=== PATIENT | female | born 1945 | race Caucasian/White ===

== ENCOUNTER 2016-09-13 08:37 | Emergency (ER) | payer MEDICARE ==
--- NOTE | 2016-09-13 08:39 | UC ---
Eye Complaint HPI - HPI Summary HPI Summary: 71 year old female presents with complains bilateral mucopurulent eye discharge/ redness. - History of Current Complaint Stated Complaint: BILATERAL EYE COMPLAINT Time Seen by Provider: 09/13/16 08:38 - Allergies/Home Medications Allergies/Adverse Reactions: Allergies Allergy/AdvReac Type Severity Reaction Status Date / Time Sulfamethoxazole Allergy Intermediate GI/nausea Verified 07/15/16 14:00 w/Trimethoprim [From Bactrim] Nabumetone [From Relafen] AdvReac Intermediate GI Verified 07/15/16 14:00 Amoxicillin AdvReac GI Upset Verified 09/13/16 08:46 PMH/Surg Hx/FS Hx/Imm Hx Previously Healthy: Yes - Surgical History Surgical History: Yes Surgery Procedure, Year, and Place: tonsillectomy. partial hysterectomy. tubal ligation. upper right arm surgery age 14 yo. bilat eye surgery/cataract - Family History Known Family History: Positive: Hypertension, Respiratory Disease - Social History Alcohol Use: Daily Alcohol Amount: 1 mixed drink a day Substance Use Type: None Smoking Status (MU): Former Smoker Type: Cigarettes When Did the Patient Quit Smoking/Using Tobacco: 1989 Review of Systems Constitutional: Negative Skin: Negative Eyes: Drainage, Eye Redness ENT: Negative Respiratory: Negative Cardiovascular: Negative Gastrointestinal: Negative Genitourinary: Negative Motor: Negative Neurovascular: Negative Musculoskeletal: Negative Neurological: Negative Psychological: Negative All Other Systems Reviewed And Are Negative: Yes Physical Exam Triage Information Reviewed: Yes Eyes: Positive: Conjunctiva Inflamed, Discharge ENT Exam: Normal Dental Exam: Normal Neck exam: Normal Neck: Positive: 1 Respiratory Exam: Normal Cardiovascular Exam: Normal Abdominal Exam: Normal Musculoskeletal Exam: Normal Neurological Exam: Normal Psychological Exam: Normal Skin Exam: Normal Eye Complaint Course/Dx - Differential Dx/Diagnosis Differential Diagnosis/HQI/PQRI: Conjunctivitis Provider Diagnoses: conjunctivitis Discharge - Discharge Plan Condition: Stable Disposition: HOME Prescriptions: Naphazoline W/ Pheniramine [Opcon-A] 1 sagar OP TID PRN #1 sagar PRN Reason: Itching Tobramycin-Dexamethasone [Tobradex] 1 artur OP Q6H #1 bottle Patient Education Materials: Conjunctivitis (ED) Referrals: Gretchen Flores MD [Primary Care Provider] - Steffen DYE,Elza Mckeon [Medical Doctor] -
[2016-09-13 08:57] VITALS: BP 107/55
== END 2016-09-13 09:00 | disposition home or self-care (01) ==
LOC: UCCORT 08:37
DX: H10.33 Unspecified acute conjunctivitis, bilateral (principal); Z98.42 Cataract extraction status, left eye; Z98.41 Cataract extraction status, right eye; Z90.711 Acquired absence of uterus with remaining cervical stump; Z88.1 Allergy status to other antibiotic agents; Z88.2 Allergy status to sulfonamides; Z87.891 Personal history of nicotine dependence
CPT/HCPCS: 99212; G0463

== ENCOUNTER 2017-01-07 07:10 | Emergency (ER) | payer MEDICARE ==
[2017-01-07] MEDS ORDERED: predniSONE TAB* 20 MG PO ONE (07:36)
[2017-01-07] MEDS ORDERED: Albuterol/Ipratropium NEB.SOL* Albuterol 2.5 MG/Ipratropium 0.5 MG 3 ML INH ONE (07:36)
--- NOTE | 2017-01-07 07:47 | ED ---
HPI Cardiac - HPI Summary HPI Summary: 71 yr old female with the complaint of runny nose, coughing. Onset of symptoms was 3-4 weeks ago after returning from vacation in [facility]. She has been having increased coughing, sob, and feeling just tired over the past week. She denies fever. She does have a history of smoking, but quit many years ago. She has not had fever. Her cough is tight and spastic in quality. Severity is moderate. She states her chest is tight with the coughing episodes. Her has had recent pneumonia in the past few weeks. She has felt this way in the past with COPD exacerbation. - History of Current Complaint Stated Complaint: CONGESTION,HOT/COLD FLASHES Time Seen by Provider: 01/07/17 07:28 - Allergy/Home Medications Allergies/Adverse Reactions: Allergies Allergy/AdvReac Type Severity Reaction Status Date / Time Sulfamethoxazole Allergy Intermediate GI/nausea Verified 01/07/17 07:39 w/Trimethoprim [From Bactrim] Nabumetone [From Relafen] AdvReac Intermediate GI Verified 01/07/17 07:39 Amoxicillin AdvReac GI Upset Verified 01/07/17 07:39 PMH/Surg Hx/FS Hx/Imm Hx Respiratory History: Reports: Hx Chronic Obstructive Pulmonary Disease (COPD) Neurological History: Reports: Other Neuro Impairments/Disorders - PT DOESNT KNOW THE NAME OF THE CONDITION - Surgical History Surgery Procedure, Year, and Place: tonsillectomy. partial hysterectomy. tubal ligation. upper right arm surgery age 14 yo. bilat eye surgery/cataract - Family History Known Family History: Positive: Hypertension, Respiratory Disease - Social History Alcohol Use: Daily Alcohol Amount: 1 mixed drink a day Substance Use Type: Reports: None Smoking Status (MU): Former Smoker Type: Cigarettes Review of Systems Positive: Fatigue Negative: Chest Pain Positive: Shortness Of Breath, Cough Negative: Edema Skin: Negative All Other Systems Reviewed And Are Negative: Yes Physical Exam Triage Information Reviewed: Yes Vital Signs Reviewed: Yes Appearance: Positive: Well-Appearing, No Pain Distress Skin: Positive: Warm, Skin Color Reflects Adequate Perfusion Head/Face: Positive: Normal Head/Face Inspection Eyes: Positive: EOMI ENT: Positive: Normal ENT inspection, Pharynx normal, TMs normal - she has hearing aids removed and TMs easily seen and WNL. Neck: Positive: Nontender Respiratory/Lung Sounds: Positive: Decreased Breath Sounds - bilateral, Wheezes - faint wheeze in bilateral pfeiffer.. Negative: Stridor Cardiovascular: Positive: RRR. Negative: Murmur Abdomen Description: Positive: Nontender Musculoskeletal: Positive: Strength/ROM Intact. Negative: Edema Left, Edema Right Neurological: Positive: Sensory/Motor Intact, Alert, Oriented to Person Place, Time, CN Intact II-III Psychiatric: Positive: Normal - Gee Coma Scale Best Eye Response: 4 - Spontaneous Best Motor Response: 6 - Obeys Commands Best Verbal Response: 5 - Oriented Diagnostics - Laboratory Lab Statement: Any lab studies that have been ordered have been reviewed, and results considered in the medical decision making process. - Radiology chest xray Xray Interpretation: Positive (See Comments) - COPD Radiology Interpretation Completed By: Radiologist Re-Evaluation - Re-Evaluation First Eval Re-Evaluation Time: 08:49 Change: Improved Comment: Better air movement and appears more comfortable. Disposition - Course Course Of Treatment: 71 yr old with spastic coughing and SOB. COPD finding on chest xray. Rsx with MDI and prednisone, zithromax. - Diagnoses Provider Diagnoses: COPD exacerbation Discharge - Discharge Plan Condition: Good Disposition: HOME Prescriptions: Albuterol HFA INHALER* [Ventolin HFA Inhaler*] 1 - 2 puff INH Q4H PRN #1 mdi PRN Reason: Cough Azithromycin TAB* [Zithromax TAB (Z-JOANN) 250 mg #6 tabs] 2 tab PO .TODAY, THEN 1 DAILY #1 joann predniSONE TAB* [Deltasone TAB*] 40 mg PO DAILY #8 tab Patient Education Materials: COPD (Chronic Obstructive Pulmonary Disease) (ED) Referrals: Gretchen Flores MD [Primary Care Provider] - 3 Days
[2017-01-07] MEDS ORDERED: predniSONE TAB* 10 MG PO ONE (07:55)
--- NOTE | 2017-01-07 08:19 | RAD ---
INDICATION: Cough. COMPARISON: Comparison is made with a prior chest x-ray study from November 26, 2013. TECHNIQUE: Dual-energy PA and lateral views of the chest were obtained. FINDINGS: The heart is within normal limits in size. There is a retrocardiac density most consistent with a small hiatal hernia. There is increased density present at the left lung base located anteriorly which is unchanged from the prior exam likely representing a prominent pericardial fat pad. The lungs are hyperinflated otherwise clear. No pleural effusion is seen. IMPRESSION: FINDINGS CONSISTENT WITH COPD, NO EVIDENCE FOR ACUTE FINDING.
== END 2017-01-07 09:09 | disposition home or self-care (01) ==
LOC: UCCORT 07:10
DX: J44.1 Chronic obstructive pulmonary disease with (acute) exacerbation (principal); Z88.1 Allergy status to other antibiotic agents; Z88.2 Allergy status to sulfonamides; Z87.891 Personal history of nicotine dependence
CPT/HCPCS: 71020; 99213; A9270-GY; G0463; J7512

== ENCOUNTER 2018-05-25 09:39 | Emergency (ER) | payer MEDICARE ==
[2018-05-25 10:54] VITALS: BP 114/53
[2018-05-25] MEDS ORDERED: predniSONE TAB* 20 MG PO ONE (11:45)
[2018-05-25] MEDS ORDERED: Erythromycin OPTH OINT* APPLIC OINT LEFT EYE ONE (11:45)
--- NOTE | 2018-05-25 11:52 | UC ---
Eye Complaint HPI - HPI Summary HPI Summary: 73 yo female with wheezing x 1 day no cp or fever used neb also left lower lid pain and eye redness x 1 day states she has taken keflex in the past - History of Current Complaint Chief Complaint: UCRespiratory Stated Complaint: SINUS/LEFT EYE COMPLAINT,WHEEZING Time Seen by Provider: 05/25/18 11:36 Hx Obtained From: Patient Onset/Duration: Gradual Onset, Lasting Hours Timing: Constant Severity Initially: Mild Severity Currently: Moderate Pain Intensity: 0 Pain Scale Used: 0-10 Numeric Location of Injury: Eye Lid (lower) Character: Dull Aggravating Factor(s): Nothing Alleviating Factor(s): Nothing Associated Signs And Symptoms: Negative: Drainage (Clear), Drainage (Purulent) - Allergies/Home Medications Allergies/Adverse Reactions: Allergies Allergy/AdvReac Type Severity Reaction Status Date / Time amoxicillin Allergy GI Upset Verified 05/25/18 10:44 nabumetone [From Relafen] Allergy GI Upset Verified 05/25/18 10:44 sulfamethoxazole Allergy GI Upset Verified 05/25/18 10:44 [From Bactrim] trimethoprim [From Bactrim] Allergy GI Upset Verified 05/25/18 10:44 Home Medications: Home Medications Albuterol HFA INHALER* [Ventolin HFA Inhaler*] 1 puff Q4HR PRN 05/25/18 [ History Confirmed 05/25/18] Apo-Domperidone 1 tab TID 05/25/18 [History Confirmed 05/25/18] Aspirin EC TAB* [Ecotrin EC Low Dose 81 MG*] 81 mg PO DAILY 05/25/18 [History Confirmed 05/25/18] Atorvastatin* [Lipitor 10 MG*] 10 mg DAILY 05/25/18 [History Confirmed 05/25/18] Baclofen TAB* [Lioresal TAB*] 10 mg PO TID PRN 05/25/18 [History Confirmed 05/25] Fluticasone NASAL SPRAY 50MCG* [Flonase NASAL SPRAY 50MCG*] 1 spray BID [History Confirmed 05/25/18] Fluticasone-Salmeterol 100-50* [Advair Diskus 100-50*] 1 puff BID 05/25/18 [ History Confirmed 05/25/18] Omeprazole 20 mg PO BID 05/25/18 [History Confirmed 05/25/18] Umeclidinium Surrency [Incruse Ellipta] 1 puff DAILY 05/25/18 [History Confirmed 05/25/18] PMH/Surg Hx/FS Hx/Imm Hx Previously Healthy: Yes Cardiovascular History: Hypertension Respiratory History: Asthma, Bronchitis, Pneumonia - Surgical History Surgical History: Yes Surgery Procedure, Year, and Place: tonsillectomy. partial hysterectomy. tubal ligation. upper right arm surgery age 14 yo. bilat eye surgery/cataract - Family History Known Family History: Positive: Hypertension, Respiratory Disease - Social History Alcohol Use: Daily Alcohol Amount: 1 mixed drink a day Substance Use Type: None Smoking Status (MU): Former Smoker Type: Cigarettes When Did the Patient Quit Smoking/Using Tobacco: JAN 24, 1990 Review of Systems All Other Systems Reviewed And Are Negative: Yes Constitutional: Positive: Negative Skin: Positive: Negative Eyes: Positive: Eye Redness - L ENT: Positive: Negative Respiratory: Positive: Cough, Other - wheezing Cardiovascular: Positive: Negative Gastrointestinal: Positive: Negative Genitourinary: Positive: Negative Motor: Positive: Negative Neurovascular: Positive: Negative Musculoskeletal: Positive: Negative Neurological: Positive: Negative Psychological: Positive: Negative Physical Exam Triage Information Reviewed: Yes Appearance: Well-Appearing, No Pain Distress, Well-Nourished Vital Signs: Initial Vital Signs Temp 97.4 F 05/25/18 10:50 Pulse 85 05/25/18 10:50 Resp 16 05/25/18 10:50 BP 114/53 05/25/18 10:50 Pulse Ox 98 05/25/18 10:50 Vital Signs Reviewed: Yes Eyes: Positive: Conjunctiva Inflamed - L, Other: - chalazion left lower lid ENT: Positive: Hearing grossly normal. Negative: Nasal congestion, Nasal drainage, Tonsillar swelling, Tonsillar exudate, Trismus, Muffled voice, Sinus tenderness, Uvula midline Neck: Positive: Supple, Nontender, No Lymphadenopathy Respiratory: Positive: Normal breath sounds, No respiratory distress, No accessory muscle use, Wheezing - with forced expiration Cardiovascular: Positive: RRR, No Murmur Musculoskeletal: Positive: ROM Intact, No Edema Neurological: Positive: Alert Psychological Exam: Normal Skin Exam: Normal Eye Complaint Course/Dx - Differential Dx/Diagnosis Provider Diagnosis: Chalazion of left lower eyelid, Bronchospasm with bronchitis, acute Discharge - Sign-Out/Discharge Documenting (check all that apply): Patient Departure All imaging exams completed and their final reports reviewed: No Studies - Discharge Plan Condition: Stable Disposition: HOME Prescriptions: Cephalexin CAP* [Keflex CAP*] 500 mg PO TID #15 cap predniSONE [Prednisone 5 MG TAB] 10 - 40 mg PO DAILY #32 tablet Patient Education Materials: Chalazion (ED), Bronchospasm (ED) Referrals: Gretchen Flores MD [Primary Care Provider] - 4 Days (if breathing not better) Elba Perkins MD [Medical Doctor] - As Soon As Possible - Billing Disposition and Condition Condition: STABLE Disposition: Home
== END 2018-05-25 12:04 | disposition home or self-care (01) ==
LOC: UCCORT 09:39
DX: J20.9 Acute bronchitis, unspecified (principal); H00.15 Chalazion left lower eyelid; I10 Essential (primary) hypertension; J45.909 Unspecified asthma, uncomplicated; Z88.0 Allergy status to penicillin; Z88.2 Allergy status to sulfonamides; Z88.8 Allergy status to other drugs, medicaments and biological substances; Z87.891 Personal history of nicotine dependence
CPT/HCPCS: 99213; A9270-GY; G0463; J7512

== ENCOUNTER 2020-04-21 11:30 | Observation (INO) ==
[~2020-04-21 11:30] MED LIST: Buffered Lidocaine 1% SYRIN 1 ml INTRADERM ONE; DiMENhydriNATE IV 50 mg/ml 1 ml VIAL IV PUSH PRN; Lactated Ringers 1000 ml BAG 1,000 ML IV SCH; Naloxone 0.4 mg VIAL 0.4 mg/ml 1 ml VIAL IV PRN; Ondansetron 4 mg VIAL 2 MG/ML 2 ml VIAL IV PRN; fentaNYL 100 mcg/2 ml 50 MCG/ML VIAL IV PRN; oxyCODONE/Acetamin 5/325 mg TAB PO PRN
[2020-04-21] MEDS ORDERED: Propofol 10 MG/ML 20 ML BTL ONE (12:57)
[2020-04-21] MEDS ORDERED: Glycopyrrolate IV 0.2 MG/ML 1 ML VIAL ONE (12:57)
[2020-04-21] MEDS ORDERED: Lidocaine 2% PF 5 ML VIAL ONE (12:58)
[2020-04-21] MEDS ORDERED: Ondansetron 4 mg VIAL 2 MG/ML 2 ml VIAL ONE (13:44)
[2020-04-21] MEDS ORDERED: ceFAZolin 2 GM PREMIX 2 GM/50 ML BAG ONE (14:21)
[2020-04-21] MEDS ORDERED: ROPIVACAINE 5 MG/ML 30 ML BTL (0.5%) ONE (14:45)
[2020-04-21] MEDS ORDERED: Midazolam 5 mg/5 ml VIAL 1 mg/ml 5 ml VIAL (5 mg) ONE (14:51)
[2020-04-21] MEDS ORDERED: Dexamethasone IV 4 MG/ML VIAL 1 ml VIAL ONE (14:51)
[2020-04-21] MEDS ORDERED: fentaNYL 100 mcg/2 ml 50 MCG/ML VIAL ONE (16:01)
[2020-04-21] MEDS ORDERED: Midazolam 2 mg/2 ml VIAL 1 mg/ml 2 ml VIAL (2 mg) ONE (16:45)
[2020-04-21] MEDS ORDERED: Dexmedetomidine 200 mcg/2 ml 2 ml VIAL (200 mcg) ONE (16:54)
[2020-04-21] MEDS ORDERED: Ropivacaine 5 MG/ML 20 ML VIAL 0.5% (100 MG) ONE (16:58)
[2020-04-21] MEDS ORDERED: Morphine 2 MG/ML SYRINGE IV PRN (18:49)
[2020-04-21] MEDS ORDERED: Ondansetron 4 mg VIAL 2 MG/ML 2 ml VIAL IV PRN (18:49)
[2020-04-21] MEDS ORDERED: diPHENhydraMINE IV 50 MG/ML 1 ml VIAL (BENADRYL) IV PRN (18:49)
[2020-04-21] MEDS ORDERED: Magnesium Hydroxide LIQ 30 ML UDC PO PRN (18:49)
[2020-04-21] MEDS ORDERED: Ondansetron ODT 4 mg TAB 4 MG TAB PO PRN (18:49)
[2020-04-21] MEDS ORDERED: Lactulose 30 ml UDC PO PRN (18:49)
[2020-04-21] MEDS ORDERED: diPHENhydraMINE 25 mg TAB PO PRN (18:49)
[2020-04-21] MEDS ORDERED: Albuterol 2.5mg/3 ml (0.083%) NEB.SOLN INH PRN (19:01)
[2020-04-21] MEDS ORDERED: oxyCODONE/Acetamin 5/325 mg TAB ONE (19:08)
[2020-04-21] MEDS ORDERED: Albuterol HFA INHALER 8 gm MDI INH PRN (20:20)
[2020-04-21] MEDS: Lactated Ringers 1000 ml BAG 1,000 ML IV SCH (20:55)
[2020-04-21] MEDS: Magnesium Hydroxide LIQ 30 ML UDC PO SCH (21:05)
[2020-04-21] MEDS: Fluticasone NASAL SPRAY 50MCG 16 gm SPRAY BTL INTRANASAL SCH (21:11)
[2020-04-21] MEDS: AZELASTINE 0.1% INTRANASAL SCH (21:11)
[2020-04-21] MEDS: DOMPERIDONE 10 MG PO SCH (23:11)
[2020-04-21] MEDS: Mometasone/Formoter 200/5 MDI INH SCH (23:12)
[2020-04-22] MEDS: ceFAZolin 1 GM ADVAN 1 GM in NS 0.9% 50 ML 50 ML IVPB SCH ×3 (01:37→16:26)
[2020-04-22 04:41] LABS: Hematocrit 34 % (35-47); Hemoglobin 11.5 g/dL (12.0-16.0); Mean Platelet Volume 8.7 fL (7.4-10.4); Platelet Count 207 10^3/uL (150-450)
[2020-04-22 04:58] LABS: BUN/Creatinine Ratio 18.8 (8-20); Calcium 8.6 mg/dL (8.6-10.3); EGFR African American 99.8 (>60); EGFR Non-African American 82.5 (>60); Potassium 3.9 mmol/L (3.5-5.0)
[2020-04-22] MEDS: Mometasone/Formoter 200/5 MDI INH SCH (07:37)
[2020-04-22] MEDS: Lactated Ringers 1000 ml BAG 1,000 ML IV SCH (08:11)
[2020-04-22] MEDS: Magnesium Hydroxide LIQ 30 ML UDC PO SCH (08:15)
[2020-04-22] MEDS: DOMPERIDONE 10 MG PO SCH ×2 (08:17→11:27)
[2020-04-22] MEDS: AZELASTINE 0.1% INTRANASAL SCH (08:23)
[2020-04-22] MEDS: Fluticasone NASAL SPRAY 50MCG 16 gm SPRAY BTL INTRANASAL SCH (08:23)
[2020-04-22] MEDS ORDERED: PTO: Umeclidinium 62.5 MDI(NF) MDI INH SCH (09:00)
[2020-04-22] MEDS ORDERED: Vitamin THERAPEUTIC TAB PO SCH (09:00)
[2020-04-22] MEDS ORDERED: Morphine ER 15 mg TAB ** extended release PO ONE (14:19)
[2020-04-22 16:41] VITALS: BP 133/69
== END 2020-04-22 17:00 | disposition home or self-care (01) ==
LOC: AA 13:34 → INTOOBSV 13:34 → SSU 19:46
PROVIDERS: ADMIT Orthopaedic Surgery Adult Reconstructive Orthopaedic Surgery; ATTEND Orthopaedic Surgery Adult Reconstructive Orthopaedic Surgery

== ENCOUNTER 2020-11-15 15:06 | Observation (INO) ==
[~2020-11-15 15:06] MED LIST changes: -DiMENhydriNATE IV 50 mg/ml 1 ml VIAL IV PUSH PRN; +Famotidine IV 10 MG/ML 2 ml VIAL (20 mg) IV ONE; -Naloxone 0.4 mg VIAL 0.4 mg/ml 1 ml VIAL IV PRN; -Ondansetron 4 mg VIAL 2 MG/ML 2 ml VIAL IV PRN; -fentaNYL 100 mcg/2 ml 50 MCG/ML VIAL IV PRN; -oxyCODONE/Acetamin 5/325 mg TAB PO PRN
[2020-11-15] MEDS ORDERED: ceFAZolin 2 GM in NS PREMIX 2 GM/100 ML BAG IVPB ONE (15:39)
[2020-11-15] MEDS ORDERED: Famotidine IV 10 MG/ML 2 ml VIAL (20 mg) ONE (15:56)
[2020-11-15] MEDS ORDERED: fentaNYL 100 mcg/2 ml 50 MCG/ML VIAL ONE ×3 (16:03→21:12)
[2020-11-15] MEDS ORDERED: Lidocaine 2% PF 5 ML VIAL ONE (16:03)
[2020-11-15] MEDS ORDERED: Midazolam 5 mg/5 ml VIAL 1 mg/ml 5 ml VIAL (5 mg) ONE (16:03)
[2020-11-15] MEDS ORDERED: ROPIVACAINE 5 MG/ML 30 ML BTL (0.5%) ONE (16:04)
[2020-11-15] MEDS ORDERED: Propofol 10 MG/ML 20 ML BTL ONE ×2 (16:45→20:32)
[2020-11-15] MEDS ORDERED: Naloxone 0.4 mg VIAL 0.4 mg/ml 1 ml VIAL IV PRN ×2 (17:35→20:27)
[2020-11-15] MEDS ORDERED: Ondansetron 4 mg VIAL 2 MG/ML 2 ml VIAL IV PRN (17:35)
[2020-11-15] MEDS ORDERED: HYDROmorphone 1 MG/1 ML SYRINGE IV PRN (17:35)
[2020-11-15] MEDS ORDERED: Ropivacaine 5 MG/ML 20 ML VIAL 0.5% (100 MG) ONE (17:40)
[2020-11-15] MEDS ORDERED: Midazolam 2 mg/2 ml VIAL 1 mg/ml 2 ml VIAL (2 mg) ONE (18:19)
[2020-11-15] MEDS ORDERED: Phenylephrine 40 mcg/mL 10mL (400mcg) SYRINGE ONE (18:41)
[2020-11-15] MEDS ORDERED: diPHENhydraMINE IV 50 MG/ML 1 ml VIAL (BENADRYL) IV PRN ×2 (20:27→21:03)
[2020-11-15] MEDS ORDERED: DiMENhydriNATE IV 50 mg/ml 1 ml VIAL IV PUSH PRN (20:27)
[2020-11-15] MEDS ORDERED: Magnesium Hydroxide LIQ 30 ML UDC PO PRN (21:03)
[2020-11-15] MEDS ORDERED: Lactulose 30 ml UDC PO PRN (21:03)
[2020-11-15] MEDS ORDERED: diPHENhydraMINE 25 mg TAB PO PRN (21:03)
[2020-11-15] MEDS ORDERED: HYDROmorphone 1 MG/1 ML SYRINGE ONE (21:03)
[2020-11-15] MEDS ORDERED: Ondansetron ODT 4 mg TAB 4 MG TAB PO PRN (21:03)
[2020-11-15] MEDS ORDERED: Morphine 2 MG/ML SYRINGE IV PRN (21:03)
[2020-11-15] MEDS ORDERED: Fluticasone NASAL SPRAY 50MCG 16 gm SPRAY BTL INTRANASAL PRN (21:10)
[2020-11-15] MEDS ORDERED: Albuterol HFA INHALER 8 gm MDI INH PRN (21:10)
[2020-11-15] MEDS ORDERED: Albuterol 2.5mg/3 ml (0.083%) NEB.SOLN INH PRN (21:10)
[2020-11-15] MEDS: HYDROmorphone 1 MG/1 ML SYRINGE IV PRN ×5 (21:10→21:39)
[2020-11-15] MEDS: fentaNYL 100 mcg/2 ml 50 MCG/ML VIAL IV PRN ×2 (21:50→21:59)
[2020-11-15] MEDS ORDERED: Lactated Ringers 1000 ml BAG 1,000 ML IV SCH (22:00)
[2020-11-15] MEDS: Ondansetron 4 mg VIAL 2 MG/ML 2 ml VIAL IV PRN (22:50)
[2020-11-16] MEDS: ceFAZolin 1 GM ADVAN 1 GM in NS 0.9% 50 ML 50 ML IVPB SCH ×2 (02:01→09:34)
[2020-11-16 07:24] LABS: Hematocrit 30 % (35-47); Platelet Count 220 10^3/uL (150-450)
[2020-11-16 07:47] LABS: Calcium 8.5 mg/dL (8.6-10.3); Potassium 3.7 mmol/L (3.5-5.0)
[2020-11-16] MEDS ORDERED: Magnesium Hydroxide LIQ 30 ML UDC PO SCH (09:00)
[2020-11-16] MEDS ORDERED: Mometasone/Formoter 100/5 MDI INH SCH (09:00)
[2020-11-16] MEDS ORDERED: Cholecalciferol (VIT D3) 1,000 unit TAB PO SCH (09:00)
[2020-11-16] MEDS ORDERED: Vitamin THERAPEUTIC TAB PO SCH (09:00)
[2020-11-16] MEDS ORDERED: NF: Umeclidinium 62.5 MDI(NF) MDI INH SCH (09:00)
[2020-11-16] MEDS: Ondansetron 4 mg VIAL 2 MG/ML 2 ml VIAL IV PRN (09:34)
[2020-11-16 11:32] VITALS: BP 103/54
[2020-11-16] MEDS ORDERED: Enoxaparin 30 MG/0.3 ML SYR SUBCUT SCH (12:00)
[2020-11-17] MEDS ORDERED: Aspirin EC 81 mg TAB.EC (enteric coated) PO SCH (09:00)
== END 2020-11-16 14:42 | disposition home or self-care (01) ==
LOC: AA 15:06 → INTOOBSV 15:06 → SSU 22:50
PROVIDERS: ADMIT Orthopaedic Surgery Adult Reconstructive Orthopaedic Surgery; ATTEND Orthopaedic Surgery Adult Reconstructive Orthopaedic Surgery